=== PATIENT | female | born 1995 | race Caucasian/White ===

== ENCOUNTER 2016-08-21 18:36 | Emergency (ER) | payer OTHER ==
[2016-08-21 19:21] LABS: BILIRUBIN NEGATIVE (NEGATIVE); BLOOD 3+ Ery/uL (NEGATIVE); CLARITY HAZY (CLEAR); COLOR RED (YELLOW); GLUCOSE (U) NORMAL (NORMAL); KETONE (U) 1+ (SMALL) mg/dL (NEGATIVE); LEUKOCYTES TRACE Leu/uL (NEGATIVE); NITRITE POSITIVE (NEGATIVE); PROTEIN 3+ mg/dL (NEGATIVE); SPECIFIC GRAVITY 1.025 (1.001-1.030); pH 5.5 (5.0-9.0)
[2016-08-21 19:26] LABS: BACTERIA TRACE; MUCOUS MODERATE; URINARY RBC TNTC
== END 2016-08-21 20:09 | disposition home or self-care (01) ==
LOC: FER 18:36
PROVIDERS: Nurse Practitioner Family
DX: N39.0 Urinary tract infection, site not specified (principal); N92.0 Excessive and frequent menstruation with regular cycle
CPT/HCPCS: 81001

== ENCOUNTER 2021-01-02 17:16 | Emergency (ER) | payer OTHER ==
[~2021-01-02 17:16] MED LIST: EFFEXOR XR37.5 MG PO
[2021-01-02] MEDS ORDERED: VIBRAMYCIN100 MG PO (18:37)
[2021-01-02 19:34] LABS: BASOPHIL 0.6 % (0-2); EOSINOPHIL 1.4 % (0-5); HCT 41.7 % (37.0-47.0); LYMPHOCYTE 29.9 % (15-48); MCH 25.7 pg (25.0-31.0); MCHC 31.2 g/dL (32.0-36.0); MCV 82.4 fL (78.0-100.0); MONOCYTE 5.2 % (0-12); MPV 9.9 fL (6.0-9.5); NEUTROPHIL 62.5 % (41-80); NRBC 0; PLT 367 K/uL (150-400); RBC 5.06 M/uL (4.20-5.40); RDW 13.8 % (11.5-14.0); WBC 10.7 K/uL (4.0-10.5)
[2021-01-02 19:34] LABS: BILIRUBIN NEGATIVE (NEGATIVE); BLOOD 2+ Ery/uL (NEGATIVE); COLOR YELLOW (YELLOW); GLUCOSE (U) NORMAL (NORMAL); LEUKOCYTES 1+ Leu/uL (NEGATIVE); NITRITE NEGATIVE (NEGATIVE); PROTEIN NEGATIVE (NEGATIVE); UROBILINOGEN 0.2 mg/dL (0.2-1.0)
[2021-01-02 19:47] LABS: CLARITY SLIGHTLY HAZY (CLEAR)
[2021-01-02 19:49] LABS: BACTERIA 1+
[2021-01-02 19:56] LABS: ALBUMIN 3.2 g/dL (3.4-5.0); BILIRUBIN - TOTAL 0.1 mg/dL (0.2-1.0); BUN/CREAT RATIO (CALC) 22.2 RATIO; CREATININE 0.72 mg/dL (0.51-0.95); GLOBULIN (CALCULATION) 4.3 g/dL; POTASSIUM 3.9 mmol/L (3.5-5.1); TOTAL PROTEIN 7.5 g/dL (6.4-8.2)
== END 2021-01-02 20:50 | disposition home or self-care (01) ==
LOC: FER 17:16
PROVIDERS: Internal Medicine
DX: T28.3XXA Burn of internal genitourinary organs, initial encounter (principal); R59.0 Localized enlarged lymph nodes; L03.315 Cellulitis of perineum; F41.9 Anxiety disorder, unspecified; F32.9 Major depressive disorder, single episode, unspecified; Z79.899 Other long term (current) drug therapy; X58.XXXA Exposure to other specified factors, initial encounter
CPT/HCPCS: 36415; 76817; 80053; 81001; 85025; 87088